=== PATIENT | female | born 1980 | race Caucasian/White ===

== ENCOUNTER 2016-07-19 20:10 | Emergency (ER) | payer MEDICAID ==
[~2016-07-19] VITALS: Ht 170.2 cm; Wt 67.0 kg
[2016-07-19 23:44] VITALS: BP 139/78
== END 2016-07-20 01:42 | disposition home or self-care (01) ==
LOC: ER 20:11
DX: H60.92 Unspecified otitis externa, left ear (principal); K02.9 Dental caries, unspecified; Z88.6 Allergy status to analgesic agent
CPT/HCPCS: 99283